=== PATIENT | male | born 1990 ===

== ENCOUNTER 2020-02-06 21:30 | Emergency (ER) | payer OTHER, SELFPAY ==
[2020-02-06 21:40] VITALS: BP 134/79; PULSE 102; RESP 16; TEMP 37.5; O2SAT 98; BMI 36.3
--- NOTE | 2020-02-06 22:19 | ED_ITS ---
HPI - URI/Sore Throat General Chief Complaint: Upper Respiratory Symptoms Stated Complaint: covid symptoms Time Seen by Provider: 02/06/20 22:09 Source: patient Mode of arrival: ambulatory Limitations: no limitations History of Present Illness HPI Narrative: Patient congested for last 1 week denies any COVID contact coughing with clear secretions blood tinge sometimes , sorethroat +denies any significant shortness of breath MD elicited complaint: cough, sore throat and nasal congestion Onset (ago): day(s) (7) Severity: moderate Description of mucous: clear Able to tolerate fluids by mouth: Yes Treatments prior to arrival: none Related Data Previous Rx's Medication Instructions Recorded azithromycin [Zithromax TRI-ALYSIA] 500 mg PO DAILY 3 Days #3 tab 02/06/20 codeine-guaifenesin 5 ml PO Q6H PRN #120 ml 02/06/20 Allergies Allergy/AdvReac Type Severity Reaction Status Date / Time Penicillins [PENICILLINS] Allergy Intermediate SWELLING Unverified 12/07/19 16 :26 cinnamon [CINNAMON] Allergy Unknown UNKNOWN Unverified 12/07/19 16:26 phenytoin [From DILANTIN] Allergy Unknown SWELLING Unverified 12/07/19 16:26 shrimp Allergy Unknown SWELLING Unverified 12/07/19 16:26 egg Allergy Unknown Verified 02/06/20 21:46 all shell fish Allergy Unknown Unknown Uncoded 02/06/20 21:46 SEAFOOD Allergy Unknown SWELLING Uncoded 12/07/19 16:26 shrimp Allergy Unknown Unknown Uncoded 02/06/20 21:46 Review of Systems Review of Systems: REVIEW OF SYSTEMS: Pertinent positives and negatives are stated above in the history. GEN: no fevers, chills, fatigue HEENT: ++no nasal congestion, sore throat, NEURO: no headache, dizziness, focal weakness PULM: no shortness of breath CV: no chest pain, palpitations, LE edema ABD: no abdominal pain, nausea, vomiting, diarrhea : no dysuria, urgency, frequency SKIN: no rash ROS otherwise negative x 10 [facility] Past Medical History Medical History (Updated 02/07/20 @ 00:00 by Background Daemon) Anxiety Social History Social History Alcohol intake: never Smoking Status: Current some day smoker Smoked in Last 30 Days: Yes Use of substances other than those prescribed or required for medical reasons: No Advance Directives: No Advance Directives Information Provided: Yes Physical Exam Vital Signs: Vital Signs: Last Vital Signs Temp 99.5 F 02/06/20 21:40 Pulse 102 H 02/06/20 21:40 Resp 16 02/06/20 21:40 BP 134/79 02/06/20 21:40 Pulse Ox 98 02/06/20 21:40 Body Mass Index 36.3 Appearance: Alert. Oriented X3. No acute distress. Eyes: Pupils equal, round and reactive to light. ENT: Pharynx slight erythema+. Clear secretions from the nose Neck: Normal inspection. Neck supple. CVS: Normal heart rate and rhythm. Pulses normal. Respiratory: No respiratory distress. Breath sounds normal. Abdomen: Soft and nontender. Skin: Skin warm and dry. Normal skin color. Normal skin turgor. Extremities: No lower extremity edema. Good range of movement Neuro: Oriented X 3. No motor deficit. No sensory deficit. Course Course Course Narrative: Patient with strep throat chest x-ray negative. COVID-19 is pending Patient is allergic to penicillin will give Zithromax and discharge Discharge Plan Discharge Clinical Impression: Acute streptococcal pharyngitis Patient Disposition: Home, Self-Care Instructions: Strep Throat (ED) Additional Instructions: you have strep throat. COVID-19 testing was done result will be back in 2 days and someone will call you give social distancing for now and take antibiotic as prescribed Prescriptions: New azithromycin [Zithromax TRI-ALYSIA] 500 mg tablet 500 mg PO DAILY 3 Days Qty: 3 RF: 0 codeine-guaifenesin 10-100 mg/5 mL liquid 5 ml PO Q6H PRN (Reason: cough) Qty: 120 RF: 0 Stand Alone Forms: Work/School Release Interventions: ED Discharge Assessment Last Done: 02/06/20 23:07 Discharge Date/Time: 02/06/20 23:14
--- NOTE | 2020-02-06 22:25 | XR_ITS ---
EXAMINATION: XR CHEST CLINICAL INFORMATION: Cough COMPARISON: 10/20/2019 TECHNIQUE: Frontal view of the chest was obtained. FINDINGS: No significant abnormality is noted involving the heart, lungs, mediastinum, bony thorax or soft tissues. XR/XR chest 1V IMPRESSION: Unremarkable examination.
[2020-02-06] MEDS: Azithromycin 500 MG TABLET PO (23:12)
== END 2020-02-06 23:14 | disposition home or self-care (01) ==
PROVIDERS: Emergency Provider Internal Medicine
DX: J02.0 Streptococcal pharyngitis (principal); F17.200 Nicotine dependence, unspecified, uncomplicated; Z71.6 Tobacco abuse counseling; Z20.828 Contact with and (suspected) exposure to other viral communicable diseases; Z79.899 Other long term (current) drug therapy
CPT/HCPCS: 71045; 87880; 99283; 99284; U0003

== ENCOUNTER 2020-06-04 12:45 | Emergency (ER) | payer MEDICAID, SELFPAY ==
[2020-06-04 13:06] VITALS: BP 149/75; PULSE 102; RESP 16; TEMP 37.3; O2SAT 98; BMI 36.3
--- NOTE | 2020-06-04 13:24 | ED_ITS ---
HPI - General Adult General Chief complaint: General Medical <HILLARY Franklin Last Filed: 06/04/20 21:01> Stated complaint: COUGH <HILLARY Franklin Last Filed: 06/04/20 21:01> Time Seen by Provider: 06/04/20 13:14 <HILLARY Franklin Last Filed: 06/04/20 21:01> Source: patient <HILLARY Franklin Last Filed: 06/04/20 21:01> Mode of arrival: ambulatory <HILLARY Franklin Last Filed: 06/04/20 21:01> Limitations: no limitations <HILLARY Franklin Last Filed: 06/04/20 21:01> History of Present Illness HPI narrative: Patient presents to ED for COVID like symptoms. Patient states himself and girlfriend was exposed to a co-worker who tested positive for the COVID virus/. Patient states headache, runny nose, left ear pain, slight cough. Patient denies any chest pain, shortness of breath, swelling of lower extremities, calf pain, weakness, dizziness, sore throat, fever, chills, or body ache. <HILLARY Franklin Last Filed: 06/04/20 21:01> Related Data Home medications: Previous Rx's Medication Instructions Recorded azithromycin [Zithromax TRI-ALYSIA] 500 mg PO DAILY 3 Days #3 tab 02/06/20 codeine-guaifenesin 5 ml PO Q6H PRN #120 ml 02/06/20 <HILLARY Franklin Last Filed: 06/04/20 21:01> Allergies/adverse reactions: Allergies Allergy/AdvReac Type Severity Reaction Status Date / Time Penicillins [PENICILLINS] Allergy Intermediate SWELLING Verified 06/04/20 13:06 cinnamon [CINNAMON] Allergy Unknown UNKNOWN Verified 06/04/20 13:06 phenytoin [From DILANTIN] Allergy Unknown SWELLING Verified 06/04/20 13:06 shrimp Allergy Unknown SWELLING Verified 06/04/20 13:06 egg Allergy Unknown Verified 06/04/20 13:06 all shell fish Allergy Unknown Unknown Uncoded 02/06/20 21:46 SEAFOOD Allergy Unknown SWELLING Uncoded 12/07/19 16:26 shrimp Allergy Unknown Unknown Uncoded 02/06/20 21:46 <HILLARY Franklin - Last Filed: 06/04/20 21:01> Review of Systems Review of Systems: Yes all other systems are reviewed and are negative <HILLARY Franklin - Last Filed: 06/04/20 21:01> Constitutional: Constitutional: Reports as per HPI, Reports no additional constitutional complaints and Reports headache(s) <HILLARY Franklin - Last Filed: 06/04/20 21:01> Eyes: Eyes: Reports as per HPI and Reports no additional eye complaints <HILLARY Franklin - Last Filed: 06/04/20 21:01> ENT: Reports system reviewed and no additional complaints, except as documented, Reports as per HPI, Reports headache(s) and Reports nasal congestion <HILLARY Franklin - Last Filed: 06/04/20 21:01> Cardiovascular: Cardiovascular: Reports as per HPI and Reports no additional cardiovascular complaints <HILLARY Franklin Last Filed: 06/04/20 21:01> Respiratory: Respiratory: Reports as per HPI, Reports no additional respiratory complaints and Reports cough <HILLARY Franklin - Last Filed: 06/04/20 21:01> Gastrointestinal: Gastrointestinal: Reports as per HPI and Reports no additional gastrointestinal complaints <HILLARY Franklin - Last Filed: 06/04/20 21:01> Genitourinary: Genitourinary: Reports no additional male genitourinary complaints and Reports as per HPI <HILLARY Franklin - Last Filed: 06/04/20 21:01> Musculoskeletal: Musculoskeletal: Reports no additional musculoskeletal complaints and Reports as per HPI <HILLARY Franklin - Last Filed: 06/04/20 21:01> Neurologic: Reports system reviewed and no additional complaints, except as documented, Reports as per HPI and Reports headache(s) <HILLARY Franklin Last Filed: 06/04/20 21:01> Psychiatric: Psychiatric: Reports no additional psychiatric complaints and Reports as per HPI <HILLARY Franklin - Last Filed: 06/04/20 21:01> PMFSH Past Medical History Medical History: Medical History Anxiety <HILLARY Franklin - Last Filed: 06/04/20 21:01> Social History Social History: Social History Alcohol intake: never Smoking Status: Current some day smoker Advance Directives: No Advance Directives Information Provided: No <HILLARY Franklin - Last Filed: 06/04/20 21:01> Physical Exam Vital Signs: Vital Signs: Last Vital Signs Temp 99.1 F 06/04/20 13:06 Pulse 102 H 06/04/20 13:06 Resp 16 06/04/20 13:06 BP 149/75 H 06/04/20 13:06 Pulse Ox 98 06/04/20 13:06 Body Mass Index 36.3 <HILLARY Franklin - Last Filed: 06/04/20 21:01> Vital Signs: Last Vital Signs Temp 99.1 F 06/04/20 13:06 Pulse 102 H 06/04/20 13:06 Resp 16 06/04/20 13:06 BP 149/75 H 06/04/20 13:06 Pulse Ox 98 06/04/20 13:06 Body Mass Index 36.3 <Qamar Martin MD - Last Filed: 06/24/20 07:14> Const: General: cooperative, healthy appearing, comfortable, no acute distress, well developed, alert, awake and Physically active <HILLARY Franklin - Last Filed: 06/04/20 21:01> Orientation/consciousness: patient oriented x3 <HILLARY Franklin - Last Filed: 06/04/20 21:01> HENMT: Head: Yes normal to inspection, Yes No palpable skull fracture present, Yes normocephalic, Yes atraumatic, No abrasion, No Acrocyanosis present, No Hunt's sign, No contusion, No cranial bruits, No hematoma, No laceration, No occipital foramen tenderness, No palpable skull fracture, No raccoon eyes, No scalp lesion, No scalp tenderness, No Temporal artery tenderness present and No periorbital ecchymosis <HILLARY Franklin - Last Filed: 06/04/20 21:01> Ears: hearing grossly normal bilaterally, external ears normal, TM's normal bilaterally and EAC's normal <HILLARY Franklin Last Filed: 06/04/20 21:01> Face and sinus: Yes normal facial exam and Yes sinuses nontender <HILLARY Franklin Carol Last Filed: 06/04/20 21:01> Throat: Yes posterior oropharynx normal, Yes tonsils normal and Yes uvula midline <HILLARY Franklin Last Filed: 06/04/20 21:01> Eyes: General: appearance normal, both eyes and all related structures <HILLARY Franklin Last Filed: 06/04/20 21:01> Neck: Neck: Yes normal visual inspection, Yes full ROM, Yes no lymphadenopathy, Yes no meningeal signs, Yes trachea midline, Yes supple and No tender <HILLARY Franklin Last Filed: 06/04/20 21:01> Chest: Chest palpation & inspection: normal inspection of the chest and normal palpation of entire chest wall <HILLARY Franklin Last Filed: 06/04/20 21:01> Resp: Effort & Inspection: normal respiratory effort and able to speak in complete sentences <HILLARY Franklin Last Filed: 06/04/20 21:01> Auscultation: clear to auscultation bilaterally <HILLARY Franklin Last Filed: 06/04/20 21:01> Cardio: Jugular venous distension: no JVD <HILLARY Franklin Last Filed: 06/04/20 21:01> Heart sounds: S1 normal heart sound present and S2 normal heart sound present <HILLARY Franklin Last Filed: 06/04/20 21:01> GI: Inspection: Yes normal to inspection <HILLARY Franklin Last Filed: 06/04/20 21:01> Palpation (GI): Soft to palpation, not firm, nontender, no guarding and not rigid <HILLARY Franklin Last Filed: 06/04/20 21:01> : General: No CVA tenderness and Yes no CVA tenderness <HILLARY Franklin Last Filed: 06/04/20 21:01> Back/Spine/Pelvis: Back: no CVA tenderness, No CVA tenderness and No back tenderness <HILLARY Franklin Last Filed: 06/04/20 21:01> Skin: General skin exam: no rashes or lesions noted and elasticity normal <HILLARY Franklin Last Filed: 06/04/20 21:01> Neuro: General: patient oriented x3, gait normal, no meningeal signs and CN's II-XI intact bilaterally <HILLARY Franklin - Last Filed: 06/04/20 21:01> Cranial nerves: Yes CN's II-XII intact bilaterally <HILLARY Franklin - Last Filed: 06/04/20 21:01> Extrem: General: Yes normal to inspection and Yes full ROM <HILLARY Franklin - Last Filed: 06/04/20 21:01> Psych: Appearance: grossly normal, well kempt and not disheveled <HILLARY Franklin Last Filed: 06/04/20 21:01> Course Course Course Narrative: Patient will be swabbed for COVID-19 virus. Patient also have Tylenol given to him. <HILLARY Franklin - Last Filed: 06/04/20 21:01> I have reviewed the chart <Qamar Martin MD - Last Filed: 06/24/20 07:14> Reevaluation(s) Reevaluation #1: Patient's COVID swab came back negative. <HILLARY Franklin - Last Filed: 06/04/20 21:01> Medical Decision Making Lab Data Labs: Lab Results 06/04/20 Range/Units 13:37 Coronavirus (PCR) NEGATIVE (Negative) Influenza Type A (PCR) NEGATIVE (Negative) Influenza Type B (PCR) NEGATIVE (Negative) RSV RNA Qual (PCR) NEGATIVE (Negative) <HILLARY Franklin - Last Filed: 06/04/20 21:01> Lab Results 06/04/20 Range/Units 13:37 Coronavirus (PCR) NEGATIVE (Negative) Influenza Type A (PCR) NEGATIVE (Negative) Influenza Type B (PCR) NEGATIVE (Negative) RSV RNA Qual (PCR) NEGATIVE (Negative) <Qamar Martin MD - Last Filed: 06/24/20 07:14> Discharge Plan Discharge Clinical Impression: Acute viral syndrome <HILLARY Franklin - Last Filed: 06/04/20 21:01> Patient Disposition: Home, Self-Care <HILLARY Franklin Last Filed: 06/04/20 21:01> Instructions: Viral Syndrome (ED) <HILLARY Franklin Last Filed: 06/04/20 21:01> Additional Instructions: Return to the ED immediately for any chest pain, shortness of breath, dizziness, weakness, feeling of lower extremities, calf pain, or any other concerning symptoms. If symptoms worsen recommend repeat testing in 72 hours or practice 14 day quarantine. <HILLARY Franklin - Last Filed: 06/04/20 21:01> Prescriptions: No Action azithromycin [Zithromax TRI-ALYSIA] 500 mg tablet 500 mg PO DAILY 3 Days Qty: 3 RF: 0 codeine-guaifenesin 10-100 mg/5 mL liquid 5 ml PO Q6H PRN (Reason: cough) Qty: 120 RF: 0 <HILLARY Franklin - Last Filed: 06/04/20 21:01> Stand Alone Forms: Work/School Release <HILLARY Franklin - Last Filed: 06/04/20 21:01> Interventions: ED Discharge Assessment Last Done: 06/04/20 14:58 <HILLARY Franklin - Last Filed: 06/04/20 21:01> Discharge Date/Time: 06/04/20 15:00 <HILLARY Franklin - Last Filed: 06/04/20 21:01> Print Language: Hebrew <HILLARY Franklin - Last Filed: 06/04/20 21:01>
[2020-06-04 14:39] LABS: Influenza A PCR NEGATIVE (Negative); Influenza B PCR NEGATIVE (Negative); Resp Syncy Virus RNA Qual PCR NEGATIVE (Negative); SARS COV2 PCR INHOUSE NEGATIVE (Negative)
== END 2020-06-04 15:00 | disposition home or self-care (01) ==
PROVIDERS: Physician Assistant; Emergency Provider Emergency Medicine
DX: B34.9 Viral infection, unspecified (principal); R05 Cough; F17.200 Nicotine dependence, unspecified, uncomplicated; Z20.822 Contact with and (suspected) exposure to COVID-19; Z71.6 Tobacco abuse counseling; Z79.899 Other long term (current) drug therapy
CPT/HCPCS: 0241U; 36415; 99283

== ENCOUNTER 2020-09-18 02:49 | Emergency (ER) | payer MEDICAID, SELFPAY ==
[2020-09-18 02:58] VITALS: BP 114/74; PULSE 86; RESP 16; TEMP 36.4; O2SAT 97; BMI 37.8
--- NOTE | 2020-09-18 03:50 | ED_ITS ---
HPI - Back Pain/Injury General Chief Complaint: Back Pain/Injury Stated Complaint: BACK PAIN X'S HOURS,NO KNOWN INJURY PER EMS Time Seen by Provider: 09/18/20 03:39 Source: patient Mode of arrival: EMS Limitations: no limitations History of Present Illness HPI Narrative: patient history of anxiety pseudoseizures woke up midnight with pain in the upper back unable to sleep for last 24 hours no injuries no paresthe jose in the and no numbness no weakness patient feels anxious no shortness of breath no cough Related Data Previous Rx's Medication Instructions Recorded azithromycin [Zithromax TRI-ALYSIA] 500 mg PO DAILY 3 Days #3 tab 02/06/20 codeine-guaifenesin 5 ml PO Q6H PRN #120 ml 02/06/20 cyclobenzaprine 10 mg PO Q8H #20 tab 09/18/20 ibuprofen 600 mg PO Q6H PRN #20 tab 09/18/20 lorazepam [Ativan] 1 mg PO BEDTIME PRN #10 tab 09/18/20 Allergies Allergy/AdvReac Type Severity Reaction Status Date / Time Penicillins [PENICILLINS] Allergy Intermediate SWELLING Verified 06/04/20 13:06 cinnamon [CINNAMON] Allergy Unknown UNKNOWN Verified 06/04/20 13:06 phenytoin [From DILANTIN] Allergy Unknown SWELLING Verified 06/04/20 13:06 shrimp Allergy Unknown SWELLING Verified 06/04/20 13:06 egg Allergy Unknown Verified 06/04/20 13:06 all shell fish Allergy Unknown Unknown Uncoded 02/06/20 21:46 SEAFOOD Allergy Unknown SWELLING Uncoded 12/07/19 16:26 shrimp Allergy Unknown Unknown Uncoded 02/06/20 21:46 Review of Systems Review of Systems: Yes all other systems are reviewed and are negative [facility] Past Medical History Medical History Anxiety Social History Social History Alcohol intake: never Patient Tobacco Use Status: Current everyday Tobacco user Use of substances other than those prescribed or required for medical reasons: No Advance Directives: No Advance Directives Information Provided: No Physical Exam Vital Signs: Vital Signs: Last Vital Signs Temp 97.6 F 09/18/20 02:58 Pulse 86 09/18/20 02:58 Resp 16 09/18/20 02:58 BP 114/74 09/18/20 02:58 Pulse Ox 97 09/18/20 02:58 Body Mass Index 37.8 Appearance: Alert. Oriented X3. No acute distress. Eyes: PERRLA, No Nystagmus ENT: Pharynx normal. Oral Mucosa moist Neck: Normal inspection. Neck supple. CVS: Normal heart rate and rhythm. Pulses normal. Respiratory: No respiratory distress. Equal air entry bilateral, no wheezing/rales/rhonchi back: diffuse tenderness upper back area no focal spinal tenderness good range of movement patient ambulatory Abdomen: Soft and nontender. Bowel sounds are present, no mass palpable, no CVA tenderness Skin: Skin warm and dry. Normal skin color. Normal skin turgor. Extremities: No lower extremity edema. No calf tenderness Neuro: Oriented X 3. No motor deficit. No sensory deficit.No cerebellar signs , cranial nerves II-XII intact Discharge Plan Discharge Clinical Impression: Musculoskeletal back pain Patient Disposition: Home, Self-Care Instructions: Musculoskeletal Pain (ED) Additional Instructions: take pain medication and muscle relaxant as advised Medication for anxiety Prescriptions: New cyclobenzaprine 10 mg tablet 10 mg PO Q8H Qty: 20 RF: 0 ibuprofen 600 mg tablet 600 mg PO Q6H PRN (Reason: pain) Qty: 20 RF: 0 lorazepam [Ativan] 1 mg tablet 1 mg PO BEDTIME PRN (Reason: sleep) Qty: 10 RF: 0 No Action azithromycin [Zithromax TRI-ALYSIA] 500 mg tablet 500 mg PO DAILY 3 Days Qty: 3 RF: 0 codeine-guaifenesin 10-100 mg/5 mL liquid 5 ml PO Q6H PRN (Reason: cough) Qty: 120 RF: 0
[2020-09-18] MEDS: Cyclobenzaprine HCl 10 MG TABLET PO (03:55)
[2020-09-18] MEDS: LORazepam 1 MG TABLET PO (03:55)
[2020-09-18 03:58] VITALS: BP 132/65; PULSE 67; RESP 16; O2SAT 98
== END 2020-09-18 04:53 | disposition home or self-care (01) ==
PROVIDERS: Emergency Provider Internal Medicine
DX: M54.6 Pain in thoracic spine (principal)
CPT/HCPCS: 99283; 99284

== ENCOUNTER 2021-03-19 15:35 | Emergency (ER) | payer MEDICAID, SELFPAY | END 2021-03-19 19:02 | disposition left against medical advice (07) | PROVIDERS: Emergency Provider Emergency Medicine | DX: R43.9 Unspecified disturbances of smell and taste (principal); M79.10 Myalgia, unspecified site ==

== ENCOUNTER 2021-03-22 10:29 | Outpatient (REF) | payer MEDICAID, SELFPAY ==
[2021-03-22 11:31] LABS: Binax Internal Control QC Valid; Binax Lot number: 9864; Binax Now Covid-19 Ag Positive (Negative)
== END 2021-03-22 10:30 | disposition home or self-care (01) ==
LOC: HO.LAB 10:29
PROVIDERS: Visit Provider Internal Medicine
DX: Z20.822 Contact with and (suspected) exposure to COVID-19 (principal)
CPT/HCPCS: 36415; C9803

== ENCOUNTER 2024-04-21 09:23 | Emergency (ER) | payer MEDICAID, SELFPAY ==
[2024-04-21 09:30] VITALS: BP 102/68; PULSE 76; RESP 18; TEMP 36.3; O2SAT 99; BMI 35.0
--- NOTE | 2024-04-21 09:52 | ED_ITS ---
HPI - Skin/Abscess/Foreign Bdy General Chief complaint: Skin/Abscess/Foreign Body Stated complaint: Lump on head bleeding Time Seen by Provider: 04/21/24 09:42 Source: patient Mode of arrival: ambulatory Limitations: no limitations History of Present Illness ED Provider: HILLARY Hicks HPI narrative: This is a 34-year-old male who presents with small lump on his head that has been there for about 2 years slowly growing. He reports this morning when he woke up there was blood on his pillow. He reports it normally does not bleed but he was scratching at it. He is concerned that it is getting worse. At this time it is not bleeding. Denies fevers, chills, headache, vision changes, dizziness, weakness, nausea, vomiting. Related Data Previous Rx's ?Medication ?Instructions ?Recorded azithromycin 500 mg tablet 500 mg PO DAILY 3 days #3 tabs 02/06/20 (Zithromax TRI-ALYSIA) codeine 10 mg-guaifenesin 100 mg/5 5 ml PO Q6H PRN cough #120 mL 02/06/20 mL oral liquid cyclobenzaprine 10 mg tablet 10 mg PO Q8H #20 tabs 09/18/20 ibuprofen 600 mg tablet 600 mg PO Q6H PRN pain #20 tabs 09/18/20 lorazepam 1 mg tablet (Ativan) 1 mg PO BEDTIME PRN sleep #10 tabs 09/18/20 bacitracin 500 unit/gram topical 1 appl topical Q8H #14 grams 04/21/24 ointment Allergies Allergy/AdvReac Type Severity Reaction Status Date / Time Penicillins [PENICILLINS] Allergy Intermediate SWELLING Verified 04/21/24 09:31 cinnamon [CINNAMON] Allergy Unknown UNKNOWN Verified 04/21/24 09:31 phenytoin [From DILANTIN] Allergy Unknown SWELLING Verified 04/21/24 09:31 shrimp Allergy Unknown SWELLING Verified 04/21/24 09:31 egg Allergy Unknown Verified 04/21/24 09:31 all shell fish Allergy Unknown Unknown Uncoded 02/06/20 21:46 SEAFOOD Allergy Unknown SWELLING Uncoded 12/07/19 16:26 shrimp Allergy Unknown Unknown Uncoded 02/06/20 21:46 Review of Systems Review of Systems: Yes all other systems are reviewed and are negative PMFSH Past Medical History Attestation statement: The following information was validated with the patient. Source: old records reviewed and nursing notes reviewed Medical History Anxiety Social History Social History Alcohol intake: never Patient Tobacco Use Status: Current everyday Tobacco user Physical Exam Vital Signs: Vital Signs: Last Vital Signs Temp 97.3 F 04/21/24 09:30 Pulse 76 04/21/24 09:30 Resp 18 04/21/24 09:30 BP 102/68 04/21/24 09:30 Pulse Ox 99 04/21/24 09:30 O2 Del Method Room Air 04/21/24 09:30 BMI result Body Mass Index 35.0 vss Appearance: Alert.? Oriented X3.? No acute cardiopulmonary distress distress.? Head: Normocephalic, atraumatic, no step-offs or deformities + small skin growth around 2 cm x 2cm to right temporal region Neck: Normal inspection.? Neck supple.? CVS: Pulses normal.? Respiratory: No respiratory distress.? Abdomen: Soft and nontender.? Skin: ? Normal skin color. Extremities: 5/5 strength to bilateral upper and lower extremities Neuro: Oriented X 3.? No motor deficit.? No sensory deficit. Course Reevaluation(s) Reevaluation #1: Educated patient on diagnosis and treatment plan, answered all question, patient verbalizes understanding. At this time patient will be discharged home, advised to return with new or worsening symptoms. Educated on worrisome signs and symptoms and when to return. At this time I feel comfortable discharge home. Time: 09:58 Medical Decision Making Medical Decision Making [facility] Narrative: [id number] 34 yo m presents w/ skin growth to head X 2 years PE - small skin growth around 2 cm x 2cm to right temporal region Hx and pe consistent with abnormal skin growth it appears to have smooth equal borders it does have different colors malignancy must be ruled out. Unlikely that it is malignancy based off patient's symptoms and slow progression however this should not be excluded. No signs of bleeding at this time. No signs of infection. Plan- dc w/ PCP follow-up. Patient does not have a PCP however will provide him a few numbers where he can call to schedule an appointment. I also gave him a phone number for Dermatology. I explained to him that this abnormal growth should be biopsied in it would be more beneficial to have this done by Dermatology who can follow this outpatient than in an emergency department in case there is an abnormal finding. Differential Diagnosis Differential Diagnoses: The differential diagnosis associated with the presentation includes (Hx and pe consistent with abnormal skin growth it appears to have smooth equal borders it does have different colors malignancy must be ruled out. Unlikely that it is malignancy based off patient's symptoms and slow progression however this should not be excluded. No signs of bleeding at this time.) Admission/Observation Consideration of admission/observation: Escalation of care including admission/observation considered (moley ) Prescription Management I considered prescription management with: Antibiotic (Bacitracin) Discharge Plan Discharge Clinical Impression: Abnormal skin growth Patient Disposition: Home, Self-Care Additional Instructions: Take your medications as prescribed. If you were prescribed antibiotics today, it is important that you take your medication to their entirety, do not skip any doses, do not finish them early. Follow-up with your primary care provider this week. Return to the emergency department with new or worsening symptoms. Such as fevers, chills, chest pain, shortness of breath, nausea, vomiting, dizziness, headache, vision changes, lethargy In case of emergency call 911 [facility] [phone] [place] [id number] [address] [address] Prescriptions: New bacitracin 500 unit/gram ointment 1 appl topical Q8H Qty: 14 0RF No Action cyclobenzaprine 10 mg tablet 10 mg PO Q8H Qty: 20 0RF ibuprofen 600 mg tablet 600 mg PO Q6H PRN (Reason: pain) Qty: 20 0RF lorazepam [Ativan] 1 mg tablet 1 mg PO BEDTIME PRN (Reason: sleep) Qty: 10 0RF azithromycin [Zithromax TRI-ALYSIA] 500 mg tablet 500 mg PO DAILY 3 Days Qty: 3 0RF codeine-guaifenesin 10-100 mg/5 mL liquid 5 ml PO Q6H PRN (Reason: cough) Qty: 120 0RF Referrals: [facility] Primary [facility] [Provider Group] - 1 day [facility] Primary [facility] [Provider Group] - 1 day Physician,Rashid [Primary Care Provider] - 2 days Stand Alone Forms: Work/School Release Print Language: Icelandic
[2024-04-21 10:08] VITALS: BP 102/68; PULSE 76; RESP 18; TEMP 36.3; O2SAT 99
== END 2024-04-21 10:11 | disposition home or self-care (01) ==
PROVIDERS: Emergency Provider Emergency Medicine
DX: D17.0 Benign lipomatous neoplasm of skin and subcutaneous tissue of head, face and neck (principal)
CPT/HCPCS: 99282; 99283

== ENCOUNTER 2024-10-28 15:41 | Emergency (ER) | payer MEDICAID, SELFPAY ==
[2024-10-28 15:44] VITALS: BP 117/66; PULSE 79; RESP 18; TEMP 37; O2SAT 97; BMI 36.9
--- NOTE | 2024-10-28 15:49 | ED_ITS ---
HPI - General Adult General Chief complaint: Eye Problems Stated complaint: rt eye swollen Time Seen by Provider: 10/28/24 16:21 Source: patient, RN notes reviewed and old records reviewed Mode of arrival: ambulatory Limitations: no limitations History of Present Illness ED Provider: Charles HPI narrative: Patient is a 34-year-old male with history of seizure disorder presenting emergency department with complaint of right eye irritation, itching, was crusted shut upon waking this morning. Denies any known injury or suspected foreign body. Does not wear contact lenses. Denies recent URI symptoms. Denies any changes in vision. Denies pain. Reports some watery drainage throughout the day. MD complaint: Right eye irritation Related Data Previous Rx's ?Medication ?Instructions ?Recorded azithromycin 500 mg tablet 500 mg PO DAILY 3 days #3 t abs 02/06/20 (Zithromax TRI-ALYSIA) codeine 10 mg-guaifenesin 100 mg/5 5 ml PO Q6H PRN cou gh #120 mL 02/06/20 mL oral liquid cyclobenzaprine 10 mg tablet 10 mg PO Q8H #20 tabs ibuprofen 600 mg tablet 600 mg PO Q6H PRN pain #20 t abs 09/18/20 lorazepam 1 mg tablet (Ativan) 1 mg PO BEDTIME PRN sle ep #10 tabs 09/18/20 bacitracin 500 unit/gram topical 1 appl topical Q8H #1 4 grams 04/21/24 ointment erythromycin 5 mg/gram (0.5 %) eye 0.5 inch ophthalmic (eye) BID 5 10/28/24 ointment days #3.5 grams Allergies Allergy/AdvReac Type Severity Reaction Status Date / Time Penicillins (PENICILLINS) Allergy Intermediate SWELLING Verified 10/28/24 15:49 cinnamon (CINNAMON) Allergy Unknown UNKNOWN Verified 10/28/24 15:49 phenytoin (From DILANTIN) Allergy Unknown SWELLING Verified 10/28/24 15:49 shrimp Allergy Unknown SWELLING Verified 10/28/24 15:49 egg Allergy Unknown Verified 10/28/24 15:49 all shell fish Allergy Unknown Unknown Uncoded 10/28/24 15:49 SEAFOOD Allergy Unknown SWELLING Uncoded 10/28/24 15:49 shrimp Allergy Unknown Unknown Uncoded 10/28/24 15:49 Review of Systems Review of Systems: As per HPI Yes all other systems are reviewed and are negative Constitutional: Constitutional: Reports as per HPI [facility] Past Medical History Medical History Anxiety Social History Social History Alcohol intake: never Patient Tobacco Use Status: Current everyday Tobacco user Advance Directives: No Advance Directives Information Provided: No Physical Exam ED Vital Signs: Vital Signs - 24 hr 10/28/24 15:44 Temperature 98.6 F Pulse Rate 79 Respiratory Rate 18 Blood Pressure 117/66 Pulse Oximetry 97 Oxygen Delivery Method Room Air BMI result Body Mass Index 36.9 Vital signs have been reviewed and appear to be correct. Blood pressure normal. Heart rate normal. Respiratory rate normal. Temperature normal. Oxygen saturation normal. Const General: cooperative, healthy appearing and no acute distress Orientation/consciousness: oriented to person, oriented to place, oriented to time and patient oriented x3 Limitations: no limitations HENMT Head: Yes normocephalic and Yes atraumatic Ears: external ears normal General nose exam: Normal external nose present Face and sinus: Yes face symmetric Mouth: oropharynx normal and moist mucous membranes Throat: Yes uvula midline Eyes General: appearance normal, both eyes and all related structures Visual Sheridan: normal visual sheridan by confrontation Alignment and Position: alignment normal and position normal Periorbital: periorbital findings normal Eyelids: Yes eyelids normal Conjunctivae: conjunctival abnormal right conjunctival injection diffuse (mild) Sclerae: sclerae normal Corneas: corneas normal and fluorescein used Pupils: Equal, round and reactive pupils present EOM: EOMs intact bilaterally Direct Ophthalmoscopy: normal light reflex Neck Neck: Yes normal visual inspection and Yes supple Resp Effort & Inspection: normal respiratory effort and able to speak in complete sentences Auscultation: clear to auscultation bilaterally Cardio Rate: regular rate Rhythm: regular rhythm Heart sounds: S1 normal heart sound present and S2 normal heart sound present GI Palpation (GI): Soft to palpation and nontender Auscultation: normoactive bowel sounds General: Yes no CVA tenderness Back/Spine/Pelvis Back: no CVA tenderness Skin General skin exam: elasticity normal and turgor normal Neuro General: oriented to person, oriented to place, oriented to time, patient oriented x3, moves all extremities, no focal motor deficits and CN's II-XI intact bilaterally Cranial nerves: Yes Equal, round and reactive pupils present Cognition (Neuro): normal cognition Extrem General: Yes full ROM, Yes no pedal edema and Yes no calf tenderness Psych Mental Status: mental status grossly normal Affect: normal affect Thought process: Normal thought process present Course Course Course Narrative: This is an RME: Additional HPI, ROS, PE not included below will be deferred to primary provider. RME assessment and note performed by: Padmini Diaz PA-C This is a [id number], with a hx of seizures, who presents to the er with complaints of right eye irritation since yesterday. Awoke this AM with his right eye crusted shut. ?Corneal abrasion noted, conjunctiva noninjected. Seen 2 weeks ago for abn growth on right side of scalp > called derm. Medical Decision Making Medical Decision Making [facility] Narrative: Patient is a 34-year-old male with history of seizure disorder presenting emergency department with complaint of right eye irritation, itching, was crusted shut upon waking this morning. On exam patient is awake, A+Ox3, VS WNL, afebrile, normal neurological exam without focal deficits, physical exam findings as above. Given reported symptoms and physical exam findings, initial differential includes but is not limited to allergic versus viral versus bacterial conjunctivitis, foreign body, corneal abrasion. No corneal abrasion noted on Wood's lamp exam with fluorescein stain. No URI symptoms to suggest viral conjunctivitis, no purulent drainage to suggest bacterial conjunctivitis. Discussed with patient that symptoms likely due to allergic conjunctivitis. Will send prescription for erythromycin ointment, advised patient he can also continue to use [id number] lubricating eyedrops. Return precautions discussed. Patient verbalized understanding of and agreement with plan. Differential Diagnosis Differential Diagnoses: The differential diagnosis associated with the presentation includes As per MDM Admission/Observation Consideration of admission/observation: Escalation of care including admission/observation considered Patient would have been admitted to the hospital had their clinical presentation warranted hospital admission. External Record Review External record reviewed: Inpatient record, Office record and Outpatient record Prescription Management I considered prescription management with: Antibiotic Discharge Plan Discharge Clinical Impression: Acute allergic conjunctivitis Patient Disposition: Home, Self-Care Instructions: Conjunctivitis (ED) Additional Instructions: You were evaluated in the emergency department today for eye redness, itching, and discharge. You are being treated for conjunctivitis with antibiotic ointment. Please complete the full course as prescribed. Be sure to wash hands thoroughly before and after touching your eyes. You should follow up with your primary care provider or manager of project management this week. Return to the emergency department if you develop changes in vision, increasing pain, fever 100.4F or greater, or any other concerning symptoms. Prescriptions: New erythromycin 5 mg/gram (0.5 %) ointment 0.5 inch ophthalmic (eye) BID 5 Days Qty: 3.5 0RF Rx Instructions: Apply to right eye. No Action cyclobenzaprine 10 mg tablet 10 mg PO Q8H Qty: 20 0RF ibuprofen 600 mg tablet 600 mg PO Q6H PRN (Reason: pain) Qty: 20 0RF lorazepam [Ativan] 1 mg tablet 1 mg PO BEDTIME PRN (Reason: sleep) Qty: 10 0RF azithromycin [Zithromax TRI-ALYSIA] 500 mg tablet 500 mg PO DAILY 3 Days Qty: 3 0RF codeine-guaifenesin 10-100 mg/5 mL liquid 5 ml PO Q6H PRN (Reason: cough) Qty: 120 0RF bacitracin 500 unit/gram ointment 1 appl topical Q8H Qty: 14 0RF Stand Alone Forms: Work/School Release Print Language: Serbian
--- OUTSIDE RECORDS SUMMARY | 2024-10-28 16:13 | XMS_ITS | Clinical Summary ---
Author Organization [employer] Address [address] [place] [address] Care Team Providers Care Production Mechanic [employer] Name Role Phone Unavailable Primary Care Provider Unavailabl e Social History Tobacco Use Types Packs/Day Years Used Date Smoking Tobacco: Never Assessed Sex and Gender Information Value Date Recorded Sex Assigned at Male 01/19/2022 10:28 AM EDT Legal Sex Male 10:28 AM EDT Gender Identity Not on file Sexual Orientation Not on file Plan of Treatment Health Maintenance Due Date Last Done Comments Depression Screening 1991 HIV Screening 1991 Disability Screening 1991 Alcohol/Substance Use Screening 2003 Tobacco Screening 2003 Family Planning (PISQ) 2006 HPV Vaccines (1 - Male 3-dos e series) 2006 Hepatitis C Screening 2009 DTaP/Tdap/Td Vaccines (1 - Tdap) 2010 Hepatitis B Vaccines (1 of 3 - 19+ 3-dose series) 2010 COVID-19 Vaccine (1 - 2023-2 5 season) 2023 Influenza Vaccine (#1) 2024 Zoster Vaccines (1 of 2) 2041 RSV Patients and Pa tients Aged 60 years or older (1 - 1-dose 75+ series) 2066 HIB Vaccines Aged Out No longer eligi ble based on patient's age to complete this topic Hepatitis A Vaccines Aged Out No long er eligible based on patient's age to complete this topic IPV Vaccines Aged Out No longer eligi ble based on patient's age to complete this topic Meningococcal B Vaccine Aged Out No l onger eligible based on patient's age to complete this topic Meningococcal Vaccine Aged Out No rafat elizabeth eligible based on patient's age to complete this topic Pneumococcal Vaccine: Pediat rics (0 to 5 Years) and At-Risk Patients (6 to 49) Years Aged Out No longer eligible b ased on patient's age to complete this topic RSV under 20 months Aged Out No longe r eligible based on patient's age to complete this topic Rotavirus Vaccines Aged Out No longer eligible based on patient's age to complete this topic
[2024-10-28] MEDS: Fluorescein Sodium STRIP 1 STRIP EYE-RIGHT (16:35)
[2024-10-28] MEDS: Tetracaine HCl/PF 0.5% Oph Sol 4 ML DROPS 1 DROP EYE-RIGHT (16:36)
[2024-10-28 16:38] VITALS: BP 117/66; PULSE 79; RESP 18; TEMP 37; O2SAT 97
== END 2024-10-28 16:38 | disposition home or self-care (01) ==
PROVIDERS: Emergency Provider Emergency Medicine
DX: H10.11 Acute atopic conjunctivitis, right eye (principal); H57.11 Ocular pain, right eye
CPT/HCPCS: 99282; 99283